=== PATIENT | female | born 1970 | race Caucasian/White ===

== ENCOUNTER → 2016-03-02 | Outpatient (CLI) | payer OTHER ==
--- NOTE | 2016-03-02 08:48 | US ---
Pelvic Ultrasound (Transabdominal and Endovaginal) with color flow and spectral Doppler History: Menorrhagia lasting 3 weeks. Comparison: November 19, 2010 Findings: The pelvis was first examined through a moderately distended bladder from TRANSABDOMINAL approach. UTERUS: Size: 8.4 x 4.7 x 4.7 cm in longitudinal, AP, and transverse projections. Orientation: Anteflexed. Uterine Masses: None seen. Endometrium: Normal in appearance without focal abnormality. ADNEXA: Follicular cyst suspected associated with each ovary. The pelvis was then evaluated from ENDOVAGINAL approach after the bladder was emptied to better evalu ate the uterus and adnexa. UTERUS: Orientation: Anteverted. Masses: None. Endometrium: Normal measuring 12 mm in thickness. There is no evidence abnormal color flow enhanceme nt along the endometrial canal. ADNEXA: Normal. The follicular cyst on the right measures 1.9 x 1.7 x 2.2 cm. The follicular cyst on the left measures 1.9 x 1.8 x 1.7 cm. Right ovary size: 2.7 x 2.1 x 2.5 cm Left ovary size: 2.8 x 2.1 x 2.5 cm Color flow and spectral Doppler: Normal color flow imaging with normal Doppler waveform bilaterally. Free fluid: None. Other findings: None. Impression: 1. Normal appearing uterus. 2. Borderline thickened endometrial stripe without focal abnormality or abnormal enhancement, measuri ng 12 mm. 3. Bilateral follicular cyst.
== END ==
LOC: CIMAGING 07:46
DX: N83.01 Follicular cyst of right ovary (principal); N83.02 Follicular cyst of left ovary
CPT/HCPCS: 76856-PO